=== PATIENT | female | born 1935 | race Caucasian/White ===

== ENCOUNTER → 2023-10-20 12:05 | Outpatient (REF) | payer MEDICARE, SELFPAY | LOC: HWRAD 12:05 | PROVIDERS: ATTENDING PHYSICIAN Physician Assistant; FAMILY PHYSICIAN Family Medicine | DX: M79.622 Pain in left upper arm (principal) | CPT/HCPCS: 73030; 73060 ==

== ENCOUNTER → 2023-12-09 08:02 | Outpatient (REF) | payer MEDICARE, SELFPAY | LOC: HWRCS 08:02 | PROVIDERS: ATTENDING PHYSICIAN Family Medicine | DX: R01.1 Cardiac murmur, unspecified (principal) | CPT/HCPCS: 93306 ==

== ENCOUNTER 2023-12-12 08:50 | Emergency (ER) | payer MEDICARE, SELFPAY ==
[2023-12-12 09:01] VITALS: BP 144/75
--- NOTE | 2023-12-12 09:34 | ED.GENMED ---
History of Present Illness
<Anuj Liu MD - Last Filed: 12/12/23 10:38>
General
Chief Complaint: Fall
Source: patient, spouse and family
Exam Limitations: none
Time Seen by Provider: 12/12/23 09:24
Nursing documentation reviewed up to this point in time: agreed with
Travel History
Have you had any contact with someone who has COVID-19?: No
Do you have any symptoms of coronavirus? Fever > 100 degrees, chills, cough, shortness of breath, sore throat, loss of taste or smell, muscle aches, or headache?: No
History of Present Illness
History of Present Illness:
Patient with history of Parkinson disease who utilizes walker at all times, presents to ED after losing balance and falling forward on top of her walker this morning. Patient's spouse who was within close proximity had turned his head when patient
fell down. Patient did not lose consciousness. Patient is only complaining of left wrist pain with a laceration. Denies headache. Denies neck pain. Denies chest pain. Denies back pain. Denies loss of sensation or weakness. Denies blurred
vision. Denies dizziness. Patient's vaccinations are up-to-date, including tetanus vaccination.
Past History
<Anuj Liu MD - Last Filed: 12/12/23 10:38>
Past History
ED Past Medical History: GERD, HTN, Hypercholesterolemia, Psychiatric (Anxiety/panic disorder) and Other (DJD hip, spine)
ED Past Surgical History: Gynecological (Hysterectomy) and Other (Partial thyroidectomy)
Social History
Tobacco: Non-smoker
Alcohol: None
Personal:
Living: with family
Employment: Retired
Family History
Family History: Hypertension
Review of Systems
<Anuj Liu MD - Last Filed: 12/12/23 10:38>
Review of Systems
Allergies reviewed?: Yes
All Other Systems: ROS reviewed and negative except as documented in HPI and ROS
Constitutional: Reports no symptoms
Cardiac: Denies syncope
ABD/GI: Reports no symptoms
Musculoskeletal: Reports other (Wrist pain)
Skin: Reports other (Wrist laceration)
Neurological: Reports no symptoms; Denies dizzy, headache or weakness
Phy Exam
<Anuj Liu MD - Last Filed: 12/12/23 10:38>
Physical Exam
Physical Exam:
Physical Exam
General: no apparent distress, not acutely ill. afebrile
Head: nc/at. eomi
Neck: supple. normal range of motion.
Heart: s1/s2 regular rate and rhythm, no murmur. equal radial pulses.
Lungs: no acute respiratory distress. clear bilaterally. chest wall nontender to palpation.
Abdomen: normal bowel sounds. not tender.
Neuro: alert and oriented. no focal neurological deficits
Skin: an approx 3cm superficial skin tear noted over left wrist, without pulsatile bleeding.
Psychiatric: well kept. interactive and cooperative
Extremities: mild left wrist tenderness to palpation, without deformity.
Course
<Anuj Liu MD - Last Filed: 12/12/23 10:38>
Orders/Labs/Results
Orders:
Orders
12/12/23 09:30
Ibuprofen [Motrin] 400 mg PO NOW STA
CR Wrist - Left Min 3 Views Urgent
Comment:
Reason For Exam: trauma
Vital Signs
Initial and Last Documented VS:
Initial Vital Signs
Temp Pulse Resp BP Pulse Ox
97.6 F 73 16 144/75 97
12/12/23 09:01 12/12/23 09:01 12/12/23 09:01 12/12/23 09:01 12/12/23 09:01
Last Documented Vital Signs
Temp Pulse Resp BP Pulse Ox
97.6 F 73 16 144/75 97
12/12/23 09:01 12/12/23 09:01 12/12/23 09:01 12/12/23 09:01 12/12/23 09:01
<Richard Rutledge PA-C - Last Filed: 12/12/23 11:42>
Orders/Labs/Results
Orders:
Orders
12/12/23 09:30
Ibuprofen [Motrin] 400 mg PO NOW STA
CR Wrist - Left Min 3 Views Urgent
Comment:
Reason For Exam: trauma
Vital Signs
Initial and Last Documented VS:
Initial Vital Signs
Temp Pulse Resp BP Pulse Ox
97.6 F 73 16 144/75 97
12/12/23 09:01 12/12/23 09:01 12/12/23 09:01 12/12/23 09:01 12/12/23 09:01
Last Documented Vital Signs
Temp Pulse Resp BP Pulse Ox
97.6 F 73 16 144/75 97
12/12/23 09:01 12/12/23 09:01 12/12/23 09:01 12/12/23 09:01 12/12/23 09:01
Procedures
<Richard Rutledge PA-C - Last Filed: 12/12/23 11:42>
Laceration Closure
Left Wrist:
Status of Wound: clean
Size of Wound in cm: 3
Description of Wound Edges: sharp
Preparation: cleaned with saline
Anesthesia: 1% Lidocaine with epi
Revision/Debridement: routine- no revision
Type of Closure: single layer closure
Skin Closure Material: 4-0 nylon
Number of sutures: 6
<Anuj Liu MD - Last Filed: 12/12/23 10:38>
MDM/Problems Addressed
MDM/Problems Addressed:
History and exam consistent with likely wrist strain along with laceration, requiring suture repair.
Patient otherwise remains hemodynamically and neurologically intact during observation. No indication for any other imaging studies at this time. Patient will be discharged home in stable condition, to the care of her family, with recommendation
to have suture removal in 7 to 10 days.
<Richard Rutledge PA-C - Last Filed: 12/12/23 11:42>
*Critical Care Note
Total Time (30-74mins, 75-104mins- exclusive of procedures): Not Applicable
ED Attending Note
<Anuj Liu MD - Last Filed: 12/12/23 10:38>
-
Portions of this chart may have been created with voice recognition software.� Occasional wrong word or��sound alike� substitutions may have occurred due to the inherent limitations of voice recognition software.
Discharge Plan
Departure
Patient Disposition: Home (Routine Discharge)
Date of Disposition: 12/12/23
Time of Disposition: 10:38
Patient with high blood pressure during this ER visit?: Yes
Covid-19: Not Applicable
Discharge Problem:
Strain of left wrist, Laceration
Instructions: Wrist Sprain (DC), Laceration Repair With Stitches (DC)
Prescriptions:
No Action
atorvastatin 20 mg tablet
20 mg PO QPM
carbidopa-levodopa 50-200 mg tablet extended release
1 tab PO QID
acetaminophen 500 mg Tablet
650 mg PO Q6H PRN (Reason: mild pain)
levothyroxine 25 mcg tablet
25 mcg PO DAILY
lidocaine 5 % adhesive patch,medicated
1 patch topical DAILY
Rx Instructions:
12 hours on, 12 hours off. apply to right side of lower back
diltiazem HCl 120 mg capsule,extended release 24hr
120 mg PO DAILY
lisinopril 5 mg tablet
5 mg PO HS
calcium carbonate-vitamin D3 500 mg-3.125 mcg (125 unit) Tablet
1 tab PO DAILY
Gemtesa 75 mg tablet
75 mg PO DAILY
Probiotic
1 tab PO DAILY
aspirin 81 mg Capsule
81 mg PO DAILY
fiber Tablet
2 tab PO DAILY
estradiol 0.025 mg/24 hr Patch Semiweekly
biotin 5 mg Tablet
5 mg PO
Multiple Vitamin
1 tab DAILY
Referrals:
Gustavo Pulido MD [Family Provider] -
Activity Restrictions/Additional Instructions:
As discussed, please follow-up with your primary care physician for reevaluation, including suture removal in 7 to 10 days.
Interventions
Interventions:
*Risk Screen - Suicide Last Done: 12/12/23 09:51
*General Assessment Last Done: 12/12/23 09:51
*Neglect/Abuse Screening Last Done: 12/12/23 09:51
ED- Fall Risk Assessment Last Done: 12/12/23 11:10
*ED COVID-19 Vaccine History Last Done: 12/12/23 09:01
*Nursing Disposition Last Done: 12/12/23 11:10
ED-Musculoskeletal Assessment Last Done: 12/12/23 09:51
ED- Neurological Assessment Last Done: 12/12/23 09:51
ED-Skin Assessment Last Done: 12/12/23 09:51
Discharge Date and Time
Discharge Date/Time: 12/12/23 11:11
Print Language: GAMBIAN
[2023-12-12] MEDS: MOTRIN 400 MG PO (09:35)
== END 2023-12-12 11:11 | disposition home or self-care (01) ==
LOC: EMR 08:50
PROVIDERS: EMERGENCY PHYSICIAN Emergency Medicine; FAMILY PHYSICIAN Family Medicine
DX: S66.912A Strain of unspecified muscle, fascia and tendon at wrist and hand level, left hand, initial encounter (principal); S61.512A Laceration without foreign body of left wrist, initial encounter; W01.198A Fall on same level from slipping, tripping and stumbling with subsequent striking against other object, initial encounter; G20.A1 Parkinson's disease without dyskinesia, without mention of fluctuations; I10 Essential (primary) hypertension; K21.9 Gastro-esophageal reflux disease without esophagitis; E78.00 Pure hypercholesterolemia, unspecified; F41.9 Anxiety disorder, unspecified; F41.0 Panic disorder [episodic paroxysmal anxiety]; M16.9 Osteoarthritis of hip, unspecified; Z85.828 Personal history of other malignant neoplasm of skin; Z79.82 Long term (current) use of aspirin; Z88.5 Allergy status to narcotic agent; Z88.2 Allergy status to sulfonamides; Z91.048 Other nonmedicinal substance allergy status
CPT/HCPCS: 99283; 12002; 73110

== ENCOUNTER 2024-02-05 12:43 | Emergency (ER) | payer MEDICARE, SELFPAY ==
[2024-02-05 12:48] VITALS: BP 139/65
[2024-02-05 12:52] VITALS: BMI 24.9
[2024-02-05 12:54] VITALS: BP 138/64
[2024-02-05 13:00] VITALS: BP 137/98
--- NOTE | 2024-02-05 14:17 | ED.GENMED ---
History of Present Illness
General
Chief Complaint: Fall
Source: patient, spouse and ambulance crew
Exam Limitations: none
Time Seen by Provider: 02/05/24 14:09
Nursing documentation reviewed up to this point in time: agreed with
Travel History
Have you had any contact with someone who has COVID-19?: No
Do you have any symptoms of coronavirus? Fever > 100 degrees, chills, cough, shortness of breath, sore throat, loss of taste or smell, muscle aches, or headache?: No
History of Present Illness
History of Present Illness:
88-year-old female presents emergency department after a fall. She was at a restaurant, and lost her balance and hit the right side of her head and hip. She was helped up by EMS. She lives with her at [facility] assisted living.
Past History
Past History
ED Past Medical History: GERD, HTN, Hypercholesterolemia, Psychiatric (Anxiety/panic disorder) and Other (DJD hip, spine)
ED Past Surgical History: Gynecological (Hysterectomy) and Other (Partial thyroidectomy)
Social History
Tobacco: Non-smoker
Alcohol: None
Personal:
Living: with family
Employment: Retired
Family History
Family History: Hypertension
Review of Systems
Review of Systems
Allergies reviewed?: Yes
All Other Systems: Not applicable
Constitutional: Reports no symptoms
EENT: Reports no symptoms
Respiratory: Reports no symptoms
Cardiac: Reports no symptoms
ABD/GI: Reports no symptoms
: Reports no symptoms
Musculoskeletal: Reports joint pain
Skin: Reports no symptoms
Neurological: Reports headache
Endocrine: Reports no symptoms
Hematologic/Lymphatic: Reports no symptoms
Psychiatric: Reports no symptoms
Phy Exam
Physical Exam
Physical Exam:
Physical Exam
General: no apparent distress, not acutely ill
Neck: supple. no meningeal signs. normal posterior pharynx, c-collar in place
Heart: s1/s2 regular rate and rhythm, no murmur. equal radial
pulses.
HEENT: Pupils equal round reactive to light, EOMI
Lungs: no acute respiratory distress. clear bilaterally
Abdomen: normal bowel sounds. not tender. no CVAT
Neuro: alert and oriented. no focal neurological deficits cranial nerves II through XII intact, resting tremor right hand
Skin: no rash, ecchymosis left forearm, nontender
Psychiatric: well kept. interactive and cooperative
Extremities: no edema. no calf tenderness. negative homans. good distal pulses
Course
Orders/Labs/Results
Orders:
Orders
02/05/24 14:16
CT Cervical Spine W/o Iv Contr Urgent
Comment:
Reason For Exam: fall, hit head and neck
CT Head W/o Iv Contrast Urgent
Comment:
Reason For Exam: fall, hit head
Hip, Right 2-3 Views [CR Hip - RT w/wo Pel 2-3 Vw*] Urgent
Comment:
Reason For Exam: right hip pain
Include a pelvis x-ray?: Yes
Vital Signs
Initial and Last Documented VS:
Initial Vital Signs
Temp Pulse Resp BP Pulse Ox
98 F 77 16 139/65 98
02/05/24 12:48 02/05/24 12:48 02/05/24 12:48 02/05/24 12:48 02/05/24 12:48
Last Documented Vital Signs
Temp Pulse Resp BP Pulse Ox
98 F 72 16 141/67 97
02/05/24 12:48 02/05/24 17:17 02/05/24 17:17 02/05/24 17:17 02/05/24 17:17
MDM/Problems Addressed
Differential Diagnosis Includes:
Intracranial hemorrhage, hip fracture, C-spine fracture
MDM/Problems Addressed:
88-year-old female with fall, no serious injury. Stable for discharge.
Chronic conditions affecting care: Neurological disorder (Parkinson's)
*Radiology
Radiology exam reviewed: radiology read reviewed (CT head no acute findings, CT cervical spine no acute findings, hip x-ray no acute findings)
*Pulse Oximetry
Patient hypoxic: no
*EKG
Interpreted by ED Provider?: NA
*Budget Coordinator Interpretation
Rate: Budget Coordinator- N/A
*Critical Care Note
Total Time (30-74mins, 75-104mins- exclusive of procedures): Not Applicable
Patient Management
Social determinants of health affecting care: Living situation
Escalation/DeEscalation of care consider admission/obs:
Admit not indicated
ED Attending Note
-
Portions of this chart may have been created with voice recognition software.� Occasional wrong word or��sound alike� substitutions may have occurred due to the inherent limitations of voice recognition software.
Discharge Plan
Departure
Patient Disposition: Home (Routine Discharge)
Date of Disposition: 02/05/24
Time of Disposition: 17:28
Patient with high blood pressure during this ER visit?: Yes
Condition: Good
Discharge Problem:
Fall
Instructions: Preventing falls in adults, BLOOD PRESSURE
Prescriptions:
No Action
atorvastatin 20 mg tablet
20 mg PO QPM
carbidopa-levodopa 50-200 mg tablet extended release
1 tab PO QID
acetaminophen 500 mg Tablet
650 mg PO Q6H PRN (Reason: mild pain)
levothyroxine 25 mcg tablet
25 mcg PO DAILY
lidocaine 5 % adhesive patch,medicated
1 patch topical DAILY
Rx Instructions:
12 hours on, 12 hours off. apply to right side of lower back
diltiazem HCl 120 mg capsule,extended release 24hr
120 mg PO DAILY
lisinopril 5 mg tablet
5 mg PO HS
calcium carbonate-vitamin D3 500 mg-3.125 mcg (125 unit) Tablet
1 tab PO DAILY
Gemtesa 75 mg tablet
75 mg PO DAILY
Probiotic
1 tab PO DAILY
aspirin 81 mg Capsule
81 mg PO DAILY
fiber Tablet
2 tab PO DAILY
estradiol 0.025 mg/24 hr Patch Semiweekly
biotin 5 mg Tablet
5 mg PO
Multiple Vitamin
1 tab DAILY
Referrals:
Gustavo Pulido MD [Family Provider] - Call in 1-3 days for appt
Interventions
Interventions:
*Risk Screen - Suicide Last Done: 02/05/24 12:48
*General Assessment Last Done: 02/05/24 13:49
*Neglect/Abuse Screening Last Done: 02/05/24 12:48
ED- Fall Risk Assessment Last Done: 02/05/24 13:49
*ED COVID-19 Vaccine History Last Done: 02/05/24 13:49
ED-Musculoskeletal Assessment Last Done: 02/05/24 13:49
ED- Neurological Assessment Last Done: 02/05/24 14:45
ED-Skin Assessment Last Done: 02/05/24 13:49
Discharge Date and Time
Print Language: CITIZEN OF [place]
[2024-02-05 15:20] VITALS: BP 132/62
[2024-02-05 17:17] VITALS: BP 141/67
== END 2024-02-05 17:51 | disposition home or self-care (01) ==
LOC: EMR 12:43
PROVIDERS: EMERGENCY PHYSICIAN Emergency Medicine; FAMILY PHYSICIAN Family Medicine
DX: M25.551 Pain in right hip (principal); S09.90XA Unspecified injury of head, initial encounter; W19.XXXA Unspecified fall, initial encounter; I10 Essential (primary) hypertension; G20.A1 Parkinson's disease without dyskinesia, without mention of fluctuations
CPT/HCPCS: 99284; 70450; 72125; 73502